=== PATIENT | male | born 1965 | race Caucasian/White ===

== ENCOUNTER 2022-06-01 19:41 | Emergency (ER) | payer OTHER ==
[2022-06-01 20:25] LABS: HEMOGLOBIN 12.5 gm/dl (14.0-17.5); RED BLOOD COUNT 4.59 M/UL (4.20-5.50); WHITE BLOOD COUNT 8.6 K/UL (4.5-11.0)
== END 2022-06-02 04:00 | disposition home or self-care (01) ==
LOC: ER1 19:41
PROVIDERS: Nurse Practitioner; Physician Assistant Medical
DX: J06.9 Acute upper respiratory infection, unspecified (principal); N18.9 Chronic kidney disease, unspecified; Z20.822 Contact with and (suspected) exposure to COVID-19; E11.22 Type 2 diabetes mellitus with diabetic chronic kidney disease; E78.5 Hyperlipidemia, unspecified; Z79.4 Long term (current) use of insulin
CPT/HCPCS: 71045; 80053; 80307; 81001; 82550; 82553; 83605; 84484; 85025; 87040; 96374; 99285; J2405; U0002

== ENCOUNTER 2022-06-12 16:36 | Observation (INO) | payer OTHER ==
[~2022-06-12] VITALS: Ht 177.8 cm; Wt 115.5 kg
[2022-06-13 01:41] LABS: RED BLOOD COUNT 3.47 M/UL (4.20-5.50)
[2022-06-13] MEDS ORDERED: LATANOPROST2.5 ML OS (10:55)
[2022-06-13] MEDS ORDERED: ATORVASTATIN CA40 MG PO (10:56)
[2022-06-13] MEDS ORDERED: CETIRIZINE HCL10 MG PO (10:56)
[2022-06-13] MEDS ORDERED: JARDIANCE25 MG PO (10:56)
[2022-06-13] MEDS ORDERED: FENOFIBRATE145 MG PO (10:57)
[2022-06-13] MEDS ORDERED: GLIPIZIDE5 MG PO (10:57)
[2022-06-13] MEDS ORDERED: LANTUS SOL100 UNIT/1 SQ (10:58)
[2022-06-13] MEDS ORDERED: HUMALOG100 UNIT/3 SQ (11:00)
[2022-06-13] MEDS ORDERED: LEVOTHYROXINE50 MCG PO (11:00)
[2022-06-13] MEDS ORDERED: TYLENOL PM EX-1 EACH PO (11:01)
[2022-06-13] MEDS ORDERED: SLEEP AID25 M1 PO (11:01)
[2022-06-13] MEDS ORDERED: DOK100 M1 PO (11:01)
[2022-06-13] MEDS ORDERED: MULTAQ 400 MG400 MG PO (17:01)
[2022-06-13] MEDS ORDERED: ELIQUIS5 MG PO (17:02)
== END 2022-06-13 18:20 | disposition home or self-care (01) ==
LOC: PROG CARE 20:24
PROVIDERS: ADMIT Internal Medicine
DX: I48.0 Paroxysmal atrial fibrillation (principal); N17.9 Acute kidney failure, unspecified; I13.0 Hypertensive heart and chronic kidney disease with heart failure and stage 1 through stage 4 chronic kidney disease, or unspecified chronic kidney disease; E11.22 Type 2 diabetes mellitus with diabetic chronic kidney disease; N18.30 Chronic kidney disease, stage 3 unspecified; I50.30 Unspecified diastolic (congestive) heart failure; E78.5 Hyperlipidemia, unspecified; E03.9 Hypothyroidism, unspecified; R77.8 Other specified abnormalities of plasma proteins; R79.89 Other specified abnormal findings of blood chemistry; E11.319 Type 2 diabetes mellitus with unspecified diabetic retinopathy without macular edema
CPT/HCPCS: 80048; 82550; 82553; 82962; 84439; 84443; 84484; 85025; 93005; 96372; G0378; G0379; J1650